=== PATIENT | male | born 1975 | race Caucasian/White ===

== ENCOUNTER 2016-09-21 16:35 | Emergency (ER) | payer OTHER ==
[~2016-09-21] VITALS: Ht 167.6 cm; Wt 90.7 kg
[~2016-09-21 16:35] MED LIST: CLINDAMYCIN HY300 MG PO; CYCLOBENZAPRINE10 M1 PO; EC NAPROSYN500 MG PO; FLEXERIL10 MG PO; HYDROCODONE/ACE1 TA1 PO; IBUPROFEN800 M1 PO; IBUPROFEN800 MG PO; MEDROL DOSEPAK1 PAC PO; MOTRIN800 MG PO; MULTIVITAMIN1 TAB PO; PERCOCET 325 MG1 TA2 PO; PERCOCET 5-3251 EACH PO; POLYTRIM O200 GTT/BO OPH; TRAMADOL50 MG PO; ULTRAM(MONOGRAP50 MG PO; ZITHROMAX250 M2 PO; ZOFRAN ODT4 M1 PO; [UNRECOGNIZED DRUG - OTHER] PO
[2016-09-21 16:41] VITALS: BP 132/88
--- NOTE | 2016-09-21 17:44 | ED GENERAL ADULT ---
History of Present Illness General Chief Complaint: Upper Extremity Injury Stated Complaint: NECK PAIN SHOULDER PAIN MOVING BOXES Source: patient Exam Limitations: no limitations Vital Signs & Intake/Output Vital Signs & Intake/Output Vital Signs Date Time Temp Pulse Resp B/P Pulse O2 O2 Flow FiO2 Ox Delivery Rate 09/21 1641 97.6 77 20 132/88 98 Room Air Allergies Coded Allergies: morphine (UNKNOWN PER PT 09/21/16) promethazine (From PHENERGAN) (UNKNOWN PER PT 09/21/16) Reconcile Medications Azithromycin (Zithromax) 250 MG TABLET 1 DP PO AD pna 2 the first day followed by 1 for days 2-5 Cyclobenzaprine HCl 10 MG TABLET 1 TAB PO Q8P spasms Cyclobenzaprine HCl 10 MG TABLET 1 TAB PO TID PRN MUSCLE SPASM Cyclobenzaprine HCl 5 MG TABLET 1 TAB PO TIDPRN MUSCLE SPASM Ibuprofen 800 MG TABLET 1 TAB PO 4 TIMES/DAY PRN PAIN Ibuprofen 800 MG TABLET 1 TAB PO TID PAIN Multivitamin (Multiple Vitamins) 1 TAB TAB 2 TAB PO QAM SUPPLEMENT (Reported) Nutritional Supplement (Re-Gen) (Unknown Strength) LIQUID (Unknown Dose) PO BID SUPPLEMENT (Reported) Ondansetron (Zofran Odt) 4 MG TAB.RAPDIS 1 TAB PO 4 TIMES/DAY PRN NAUSEA Oxycodone HCl/Acetaminophen (Percocet 5-325 MG Tablet) 1 EACH TABLET 1-2 TAB PO Q6P PRN pain Oxycodone HCl/Acetaminophen (Percocet 5-325 MG Tablet) 1 EACH TABLET 1 TAB PO TID PRN PAIN TEN...[id number] Tramadol HCl 50 MG TABLET 1 TAB PO Q6 PRN PAIN Triage Note: TRIAGE: PT TO ER C/C PAIN TO NECK, BACK AND R LEG AFTER MOVING BOXES TODAY. HAS HX OF DEGENERATIVE DISK DISEASE. HAS NOT TRIED ANY OTC PAIN RELIEVERS. Triage Nurses Notes Reviewed? yes HPI: 41 year old man seen for evauation of neck and right sided body pain. He reports that he has been moving his entire house since monday. He describes moving large pieces of furniture and large heavy boxes. He awoke today in his regular state of health any began moving around 11:30am. Approximately one hour later he reports moving a large box when he suddenly felt a 10/10 pain in his neck with associated lightheadedness/dizzyness and right sided numbness and burning. He laid down on the bed and took a nap which did not improve his symptoms. He denies any slurred speech, weakness, chest pain, shortness of breath, nausea, vomiting, diarrhea. (BHAVANA LUU MD) Past History Travel History Traveled to [place] past 21 day No Medical History Any Pertinent Medical History? 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 No (BHAVANA LUU MD) Review of Systems Review of Systems Constitutional: Reports: see HPI. (BHAVANA LUU MD) Physical Exam Physical Exam General Appearance: well developed/nourished, alert, awake, anxious, moderate distress Comments: General - well developed, well nourished obese man in moderate distress HEENT - NCAT, PERRL, EOMI, anicteric sclera CVS - S1, S2 w/o m/g/r Resp - CTA bilaterally GI - Soft, nontender, nondistended, bowel sounds intact Neuro - Awake and alert, CN II - XII grossly intact, sensation absent on right side of body, staggered painful appearing gait, strength 5/5 x4, no slurred speech Ext - no edema, normal pulses Core Measures ACS in differential dx? No CVA/TIA Diagnosis: No Severe Sepsis Present: No Septic Shock Present: No (BHAVANA LUU MD) Progress Differential Diagnoses I considered the following diagnoses in my evaluation of the patient: muscle sprain/strain, herniated disk, cord compression Initial ED EKG: none Comments: Given patients history of present illness and physical examination it is reasonable to think that patient has sustained an muscular strain injury, however considerations for more grave diagnosis such as herniated disks and evolving neurologic disease should be considered. Patient was unable to participate in most physical examination manuevers, however was seen to be ambulating to the restroom without difficulty a short time late. He is currently requesting a pain medications that "starts with a D" for pain relief as thats the only thing that works for him. He is refusing any toradol or NSAIDs as they dont "work" for him. Urine toxicology and urinalysis were within normal limits. Percocet and Cyclobenzaprine were given which offered him relief. He was discharged to home with a prescription for tramadol, ibuprofen, and cyclobenzaprine with instruction to follow. (BHAVANA LUU MD) Plan of Care: Orders Procedure Date/time Status URINE DRUGS OF ABUSE 09/21 1720 Complete URINALYSIS 09/21 1720 Complete Laboratory Tests 09/21/16 1720: Urine Opiates Screen < 100.00, Methadone Screen < 40, Barbiturate Screen < 60, Ur Phencyclidine Scrn < 6.00, Amphetamines Screen < 100, U Benzodiazepines Scrn < 85, Urine Cocaine Screen < 50, Urine Cannabis Screen < 5.00, Urine Color YEL, Urine Clarity CLEAR, Urine pH 6.0, Ur Specific Hallock 1.020, Urine Protein NEG, Urine Ketones NEG, Urine Nitrite NEG, Urine Bilirubin NEG, Urine Urobilinogen 1.0, Ur Leukocyte Esterase NEG, Ur Microscopic EXAM NOT REQUIRED, Urine Hemoglobin NEG, Urine Glucose NEG Departure Departure Disposition: HOME OR SELF CARE Condition: Stable Clinical Impression Primary Impression: Neck muscle strain Qualifiers: Encounter type: initial encounter Qualified Code: S16.1XXA - Strain of muscle, fascia and tendon at neck level, initial encounter Referrals: HERNÁN PEGUERO MD (PCP/Family) Additional Instructions: Follow up with your primary care provider after discharge for further care of your multiple pain complaints. Departure Forms: Customer Survey General Discharge Information Prescriptions: Current Visit Scripts Tramadol HCl 1 TAB PO Q6 PRN PAIN #10 Ibuprofen 1 TAB PO TID #30 TAB Cyclobenzaprine HCl 1 TAB PO TIDPRN #30 TAB (BHAVANA LUU MD) Resident Co-Sign Statement Statement: ED Attending supervision documentation- [X] I saw and evaluated the patient. I have also reviewed all the pertinent lab results and diagnostic results. I agree with the findings and the plan of care as documented in the Resident's documentation. [X] I have reviewed the ED Record and agree with the Resident's documentation. [] Additions or exceptions (if any) to the Resident's note and plan are summarized below: [I have personally seen and examined this patient. He presents with bilateral shoulder pain since moving boxes. The pain is 10 out of 10 and is constant. Pain increases with movement. Pain is unrelieved with Motrin. There is no weakness or numbness. On exam there is no cervical tenderness. His sensation is intact. He has full range of motion.] (MARY ANN PEACE,OPAL Multani) Critical Care Note Critical Care Note Critical Care Time: non-applicable (BELL PEACE,BHAVANA)
[2016-09-21] MEDS ORDERED: IBUPROFEN800 M1 PO (18:08)
[2016-09-21] MEDS ORDERED: TRAMADOL HCL50 M1 PO (18:08)
[2016-09-21] MEDS ORDERED: CYCLOBENZAPRINE5 M2 PO (18:09)
== END 2016-09-21 18:43 ==
LOC: ERH 16:35
DX: S16.1XXA Strain of muscle, fascia and tendon at neck level, initial encounter (principal); X58.XXXA Exposure to other specified factors, initial encounter
CPT/HCPCS: 80307; 81003

== ENCOUNTER 2016-11-27 19:21 | Emergency (ER) | payer OTHER ==
[~2016-11-27] VITALS: Ht 167.6 cm; Wt 94.3 kg
[~2016-11-27 19:21] MED LIST changes: +CYCLOBENZAPRINE5 M2 PO; +TRAMADOL HCL50 M1 PO
--- NOTE | 2016-11-27 20:48 | ED CARDIAC/CP/PALPITATIONS ---
History of Present Illness General Chief Complaint: General Adult Stated Complaint: PT COUGHING BLOOD AND CHEST FEEL TIGHT Source: patient Exam Limitations: no limitations Vital Signs & Intake/Output Vital Signs & Intake/Output Vital Signs Date Time Temp Pulse Resp B/P B/P Pulse O2 O2 Flow FiO2 Mean Ox Delivery Rate 11/276 97.9 64 18 132/65 98 Room Air 11/276 98 Room Air 11/27 1938 97.1 96 18 157/97 96 Room Air ED Intake and Output 11/28 0000 11/27 1200 Intake Total Output Total Balance Patient 208 lb Weight Allergies Coded Allergies: morphine (UNKNOWN PER PT 09/21/16) promethazine (From PHENERGAN) (UNKNOWN PER PT 09/21/16) Reconcile Medications Azithromycin (Zithromax) 250 MG TABLET 1 DP PO AD pna 2 the first day followed by 1 for days 2-5 Cyclobenzaprine HCl 10 MG TABLET 1 TAB PO Q8P spasms Cyclobenzaprine HCl 10 MG TABLET 1 TAB PO TID PRN MUSCLE SPASM Cyclobenzaprine HCl 5 MG TABLET 1 TAB PO TIDPRN MUSCLE SPASM Ibuprofen 800 MG TABLET 1 TAB PO 4 TIMES/DAY PRN PAIN Ibuprofen 800 MG TABLET 1 TAB PO TID PAIN Multivitamin (Multiple Vitamins) 1 TAB TAB 2 TAB PO QAM SUPPLEMENT (Reported) Nutritional Supplement (Re-Gen) (Unknown Strength) LIQUID (Unknown Dose) PO BID SUPPLEMENT (Reported) Ondansetron (Zofran Odt) 4 MG TAB.RAPDIS 1 TAB PO 4 TIMES/DAY PRN NAUSEA Oxycodone HCl/Acetaminophen (Percocet 5-325 MG Tablet) 1 EACH TABLET 1-2 TAB PO Q6P PRN pain Oxycodone HCl/Acetaminophen (Percocet 5-325 MG Tablet) 1 EACH TABLET 1 TAB PO TID PRN PAIN TEN...[id number] Tramadol HCl 50 MG TABLET 1 TAB PO Q6 PRN PAIN Triage Note: COMPLAINS OF INTERMITTANT L SIDE CHEST PRESSURE THAT STARTED MONDAY Triage Nurses Notes Reviewed? yes Onset: Gradual Duration: intermittent Timing: recent history Quality/Severity: moderate Location: epigastric Radiation: no radiation Activities at Onset: none HPI: Patient is a 41-year-old male who presents to emergency room with a chronic history of intermittent hemoptysis patient does state that he has significant secondhand smoke exposure however he does not smoke personally. Patient however presents for concerns of a three-day history of intermittent epigastric pain. Patient has been able tolerate by mouth and has no change in symptoms of by mouth intake. Last bowel movement was last 24 hours no blood and no melena noted. Patient denies any significant alcohol use or NSAID use. Denies any fevers chills back pain chest pain shortness of breath or arm pain jaw pain and leg swelling. Denies any nausea or vomiting (EROS BARTON) Past History Travel History Traveled to [place] past 21 day No Medical History Any Pertinent Medical History? 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 No (EROS BARTON) Review of Systems Review of Systems Constitutional: Reports: no symptoms. EENTM: Reports: no symptoms. Respiratory: Reports: see HPI, hemoptysis. Cardiovascular: Reports: no symptoms. GI: Reports: see HPI, abdominal pain. Genitourinary: Reports: no symptoms. Musculoskeletal: Reports: no symptoms. Skin: Reports: no symptoms. Neurological/Psychological: Reports: no symptoms. Hematologic/Endocrine: Reports: no symptoms. Immunologic/Allergic: Reports: no symptoms. All Other Systems: Reviewed and Negative (EROS BARTON) Physical Exam Physical Exam General Appearance: no apparent distress, alert, comfortable Cardiovascular: regular rate/rhythm Comments: Well-developed well-nourished person in no acute distress HEENT: Normal EENT exam Neck: Supple, no lymphadenopathy, normal range of motion without pain or tenderness Back: Nontender, no CVA tenderness Cardiovascular: Regular rate and rhythms no murmurs rubs or gallops, normal JVP Respiratory: Chest nontender. No respiratory distress.breath sounds clear to auscultation bilaterally Abdomen: Mild epigastric point tenderness no right upper quadrant pain no peritoneal signs no right lower quadrant pain, nontender nondistended, no appreciable organomegaly. Normal bowel sounds. No ascites Extremity: No edema, no calf tenderness to palpation, normal and equal pulses. Neuro: Alert oriented x3, motor sensory normal, Skin: No appreciable rash on exposed skin, skin is warm and dry. Psych: Mood and affect is normal, memory and judgment is normal. Core Measures ACS in differential dx? Yes Severe Sepsis Present: No Septic Shock Present: No (KIMBERLY MONTOYA,EROS) Progress Differential Diagnosis: AMI, aortic dissection, atrial fibrillation, cholecystitis, CHF/pulm edema, costochondritis, hyperkalemia, hypovolemia, hyperthyroid, hyperventilation, intracranial hemorrhage, musculoskeletal pain, myocarditis, pancreatitis, pericarditis, pneumonia, pneumothorax, PSVT, pulmonary embolism, PUD/GERD, PVCs/PACs, respiratory failure, sepsis, unstable angina, V-fib/V-Tach, WPW syndrome Plan of Care: Orders Procedure Date/time Status Add-on Test (ER Only) 11/28 2119 Active LIPASE 11/28 2039 Complete AMYLASE 11/28 2039 Complete TROPONIN LEVEL 11/27 1952 Complete D-DIMER 11/27 1952 Complete COMPREHENSIVE METABOLIC PANEL 11/27 1952 Complete CBC WITHOUT DIFFERENTIAL 11/27 1952 Complete EKG 11/28 1939 Active Laboratory Tests 11/27/162039: Anion Gap 12, Estimated GFR > 60, BUN/Creatinine Ratio 13.0, Glucose 80, Calcium 9.1, Total Bilirubin 0.6, AST 53, ALT 116 H, Alkaline Phosphatase 67, Troponin I < 0.01, Total Protein 7.3, Albumin 4.3, Globulin 3.0, Albumin/Globulin Ratio 1.4, Amylase 42, Lipase 86, D-Dimer < 200, CBC w Diff NO MAN DIFF REQ, RBC 4.83, MCV 86.4, MCH 29.1, RDW 13.7, MPV 7.3 L, Gran % 62.3, Lymphocytes % 30.2, Monocytes % 5.8, Eosinophils % 0.7, Basophils % 1.0, Absolute Granulocytes 4.6, Absolute Lymphocytes 2.2, Absolute Monocytes 0.4, Absolute Eosinophils 0.1, Absolute Basophils 0.1, PUBS MCHC 33.7 Patient understood examination was noted to be sleeping on bed in no apparent distress. Patient has clear lungs to auscultation D-dimer was unremarkable essentially ruling out pulmonary embolism. 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 On many occasions patient was noted to be sleeping and in no apparent distress. (EROS BARTON) Diagnostic Imaging: Viewed by Me: Radiology Read. Radiology Impression: no acute abnormality, no fracture Initial ED EKG: normal p-waves, normal QRS complex, normal sinus rhythm, SINUS RHYTHM AT 84 BPM Comments: PATIENT: TANYA GREEN PRESENT AGE: 41 PATIENT ACCOUNT NO: [id number] : 77 LOCATION: [facility] ORDERING PHYSICIAN: OVI CONDON MD SERVICE DATE: 11/27/16 EXAM TYPE: RAD - XRY-CHEST XRAY, PA AND LATERAL EXAMINATION: XR CHEST CLINICAL INFORMATION: Cough. COMPARISON: CT chest 06/29/2016 TECHNIQUE: 2 views of the chest were obtained. FINDINGS: No acute abnormality. The lungs are clear. No pulmonary vascular congestion or pleural effusion. Heart size is normal. The cardiac and the mediastinal contours are normal. There is a mild dextroscoliosis of the thoracic spine. IMPRESSION: No acute abnormality of the chest. DICTATED BY: JOSIAH GARCIA MD DATE/TIME DICTATED:11/27/16 (EROS BARTON) Departure Departure Disposition: HOME OR SELF CARE Condition: Stable Clinical Impression Primary Impression: Epigastric pain Secondary Impressions: Hemoptysis Referrals: NAHUN PEACE,LEIGH ANN PEGUERO MD,HERNÁN (PCP/Family) Additional Instructions: As discussed for pain and inflammation begin [id number] Tylenol. If symptoms worsen return to emergency room. If no better in one week of your epigastric pain follow-up with continuous churn butterm[facility] Dr. 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 I have also reviewed all the pertinent lab results and diagnostic results. I agree with the findings and the plan of care as documented in the PA's/SILVERSMITH APPRENTICE's documentation. [x] I have reviewed the ED Record and agree with the PA's/SILVERSMITH APPRENTICE's documentation. [] Additions or exceptions (if any) to the PAs/SILVERSMITH APPRENTICE's note and plan are summarized below: [] (ROSEANNA PEACE,OVI Yarbrough) Critical Care Note Critical Care Note Critical Care Time: non-applicable (EROS BARTON)
[2016-11-27 20:50] LABS: ABSOLUTE BASOPHIL COUNT 0.1 /CUMM (0.0-0.2); ABSOLUTE EOSINOPHIL COUNT 0.1 /CUMM (0.0-0.7); ABSOLUTE GRANULOCYTE CT 4.6 /CUMM (1.4-6.5); ABSOLUTE LYMPH COUNT 2.2 /CUMM (1.2-3.4); ABSOLUTE MONOCYTE COUNT 0.4 /CUMM (0.10-0.60); EOSINOPHIL % 0.7 % (0-5); GRANULOCYTE % 62.3 % (42.2-75.2); HEMATOCRIT 41.7 % (42-52); MEAN CORPUSCULAR HGB 29.1 PG (27.0-31.0); MEAN CORPUSCULAR HGB CONC 33.7 G/DL (33.0-37.0); MEAN CORPUSCULAR VOLUME 86.4 FL (80.0-94.0); MEAN PLATELET VOLUME 7.3 FL (7.4-10.4); PLATELET COUNT 259 /CUMM (130-400); RBC DISTRIBUTION WIDTH 13.7 % (11.5-14.5); RED BLOOD CELL CT 4.83 /CUMM (4.70-6.10); WHITE BLOOD CELL COUNT 7.4 /CUMM (4.8-10.8)
--- NOTE | 2016-11-27 21:28 | RADIOLOGY REPORT ---
EXAMINATION: XR CHEST CLINICAL INFORMATION: Cough. COMPARISON: CT chest 06/29/2016 TECHNIQUE: 2 views of the chest were obtained. FINDINGS: No acute abnormality. The lungs are clear. No pulmonary vascular congestion or pleural effusion. Heart size is normal. The cardiac and the mediastinal contours are normal. There is a mild dextroscoliosis of the thoracic spine. IMPRESSION: No acute abnormality of the chest.
[2016-11-27 22:26] VITALS: BP 132/65
== END 2016-11-27 22:26 ==
LOC: ERH 19:21
PROVIDERS: Pediatrics
DX: R10.13 Epigastric pain (principal); R04.2 Hemoptysis
CPT/HCPCS: 93005; 93010